=== PATIENT | male | born 1990 | race Caucasian/White ===

== ENCOUNTER 2021-04-13 14:04 | Emergency (ER) | payer OTHER ==
[2021-04-13] MEDS ORDERED: Sodium Chloride 0.9% 10 ML Syringe FLUSH PRN (14:13)
[2021-04-13] MEDS: Sodium Chloride 0.9% 1,000 ML IV ONE (14:20)
[2021-04-13 15:10] LABS: ANION GAP 17.6 mmol/L (5-15); CHLORIDE,CL 101 mmol/L (98-107); SODIUM,NA 139 mmol/L (136-145)
[2021-04-13 15:55] LABS: BARBITURATE SCREEN,URINE NEGATIVE (NEGATIVE); BENZODIAZEPINES SCREEN,URINE NEGATIVE (NEGATIVE); BUPRENORPHINE SCREEN,URINE NEGATIVE (NEGATIVE); METHAMPHETAMINE SCREEN, URINE NEGATIVE (NEGATIVE); THC SCREEN,URINE 50 NG/ML NEGATIVE (NEGATIVE)
== END 2021-04-13 16:20 | disposition home or self-care (01) ==
LOC: VM.ED 14:04
DX: M62.838 Other muscle spasm (principal); F14.10 Cocaine abuse, uncomplicated; R06.4 Hyperventilation; Z72.0 Tobacco use
CPT/HCPCS: 80053; 80305-QW; 81003; 83735; 84443; 84484; 85025; 93005; 99284-25; J7030